=== PATIENT | female | born 1975 | race American Indian/Alaskan Native ===

== ENCOUNTER 2020-08-10 13:37 | Outpatient (CLI) | payer OTHER ==
[2020-08-10 14:19] LABS: Hematocrit 36.2 % (30.3-42.9); Hemoglobin 11.8 gm/dl (10.1-14.3); Mean Corpuscular HGB Conc 33 % (30-34); Mean Corpuscular Volume 85 fl (79-97); Platelet Count 388 K/mm3 (140-440); Red Blood Count 4.26 M/mm3 (3.65-5.03); Red Cell Distribution Width 14.1 % (13.2-15.2)
[2020-08-10 14:37] LABS: Alanine Aminotransferase 30 units/L (7-56); Albumin 4.1 g/dL (3.9-5); Blood Urea Nitrogen 6 mg/dL (7-17); Calcium 8.7 mg/dL (8.4-10.2); Chol/HDL Ratio 3.56 %; HDL Cholesterol 53 mg/dL (40-59); Hemolysis Index 4; Iron 69 ug/dL (37-170); LDL Cholesterol,Direct 137 mg/dL (50-130); Total Iron Binding Capacity 319 mcg/dL (250-450)
[2020-08-10 14:49] LABS: BUN/Creatinine Ratio 9
[2020-08-10 16:03] LABS: Total Cells Counted 100
[2020-08-10 16:05] LABS: Anisocytosis Few; Platelet Estimate Consistent w Auto
== END 2020-08-10 13:38 | disposition home or self-care (01) ==
LOC: LAB 13:37
PROVIDERS: ATTEND Surgery
DX: E11.9 Type 2 diabetes mellitus without complications (principal); K30 Functional dyspepsia; E66.01 Morbid (severe) obesity due to excess calories
CPT/HCPCS: 36415; 80053; 80061; 82306; 82607; 82728; 83036; 83550; 84443; 85007; 85025; 85730